=== PATIENT | female | born 1950 | race Caucasian/White ===

== ENCOUNTER 2023-08-12 17:52 | Emergency (ER) | payer OTHER ==
[~2023-08-12] VITALS: Ht 154.9 cm; Wt 59.0 kg
[2023-08-12 18:01] VITALS: BP 122/75; PULSE 63; RESP 20; TEMP 97; O2SAT 98
[2023-08-12 18:30] LABS: BASOPHILS # (AUTO) 0.1 K/uL (0.00-0.22); EOSINOPHILS # (AUTO) 0.2 K/uL (0-0.4); EOSINOPHILS % (AUTO) 3.5 % (0.0-4.0); HEMATOCRIT 33.1 % (36-48); HEMOGLOBIN 11.2 g/dL (12.0-16.0); LYMPHOCYTES # (AUTO) 2.5 K/uL (2.5-16.5); MEAN CORPUSCULAR HEMOGLOBIN 30 pg (27-31); MEAN CORPUSCULAR HGB CONC 34 g/dL (33-37); MEAN CORPUSCULAR VOLUME 88.5 fL (80-94); MONOCYTES # (AUTO) 0.6 K/uL (0.8-1.0); MONOCYTES % (AUTO) 7.9 % (1.7-9.3); NEUTROPHILS # (AUTO) 3.7 K/uL (1.8-7.7); NEUTROPHILS % (AUTO) 52.6 % (42.2-75.2); PLATELET COUNT (AUTO) 270 K/uL (140-450); RED BLOOD CELL COUNT(AUTO) 3.74 MIL/uL (4.20-5.40); RED CELL DISTRIBUTION WIDTH 14.2 % (11.6-13.7); WHITE BLOOD COUNT (AUTO) 7.1 K/uL (4.8-10.8)
[2023-08-12 18:39] LABS: APPEARANCE,URINE CLEAR (CLEAR); BILIRUBIN,URINE NEGATIVE (NEGATIVE); BLOOD, URINE 1+ (NEGATIVE); COLOR,URINE YELLOW (YELLOW); LEUKOCYTE ESTERASE ,URINE TRACE (NEGATIVE); NITRITE, URINE NEGATIVE (NEGATIVE); PROTEIN,URINE NEGATIVE (NEGATIVE); UGLUCOSE NEGATIVE (NEGATIVE); UROBILINOGEN,URINE 0.2 EU/dL (0.2 - 1)
[2023-08-12 18:55] LABS: BACTERIA,URINE FEW /HPF (None Seen); RBC,URINE 0-5 /HPF (0-5); SQUAMOUS EPITHELIAL CELL,UR 0-3 (FEW) /LPF (0-3 (FEW)); WBC,URINE 0-5 /HPF (0-5)
[2023-08-12 19:03] LABS: ALANINE AMINOTRANSFERASE 41 U/L (12-78); ALBUMIN 4.3 g/dL (3.4-5.0); ALKALINE PHOSPHATASE 40 U/L (50-136); ANION GAP 15.7 (8-16); ASPARTATE AMINOTRANSFERASE 23 U/L (15-37); CALCIUM 9.6 mg/dL (8.5-10.1); CARBON DIOXIDE 27.8 mmol/L (21-32); CHLORIDE 96 mmol/L (98-107); CREATININE 1.1 mg/dL (0.6-1.3); GLUCOSE 101 mg/dL (74-106); LIPASE 25 U/L (16-77); POTASSIUM 4.5 mmol/L (3.5-5.1); SODIUM SERUM 135 mmol/L (136-145); TOTAL BILIRUBIN 0.5 mg/dL (0.0-1.0); TOTAL PROTEIN, SERUM 7.9 g/dL (6.4-8.2); UREA NITROGEN, BLOOD 14 mg/dL (7-18)
[2023-08-12] MEDS: methocarbamoL 500 MG TAB PO ONE (19:35)
[2023-08-12] MEDS: LIDOCAINE 5% 1 EA PATCH TP ONE (19:36)
[2023-08-12 19:53] VITALS: O2SAT 98
[2023-08-12] MEDS ORDERED: METH-1681 PO (21:41)
[2023-08-12] MEDS ORDERED: DICL20GE TP (21:41)
[2023-08-12] MEDS ORDERED: CEPH-588 PO (21:41)
[2023-08-12] MEDS ORDERED: LID5T TP (21:41)
[2023-08-12] MEDS: cephALEXin 500 MG CAP PO ONE (21:49)
[2023-08-12 21:55] VITALS: BP 135/71; PULSE 61; RESP 17; TEMP 97.9; O2SAT 98
== END 2023-08-12 21:55 | disposition home or self-care (01) ==
LOC: MED 17:52
DX: N39.0 Urinary tract infection, site not specified (principal); M54.50 Low back pain, unspecified; Z79.899 Other long term (current) drug therapy
CPT/HCPCS: 36415; 72131; 80053; 81001; 83690; 85025; 99284